=== PATIENT | female | born 1980 | race Caucasian/White ===

== ENCOUNTER 2022-11-18 14:11 | Outpatient (OUT) | payer BC, SELFPAY ==
[2022-11-18 14:46] LABS: Basophils Percent Auto 0.4 % (0.2-2.0); Eosinophils Absolute Auto 0.1 10^3/uL (0.0-0.7); Eosinophils Percent Auto 1.8 % (0.9-7.0); Hematocrit 40.9 % (36.0-48.0); Hemoglobin 13.6 g/dL (12.0-16.0); Immature Granulocytes Abs Auto 0.01 10^3/uL (0.00-0.03); Immature Granulocytes Pct Auto 0.1 % (0.0-0.5); Lymphocytes Absolute Auto 1.2 10^3/uL (1.2-3.8); Lymphocytes Percent Auto 17.5 % (20.5-60.0); Mean Corpuscular HGB Conc 33.3 g/dL (29.9-35.2); Mean Corpuscular Hemoglobin 31.3 pg (26.7-34.0); Mean Platelet Volume 9.3 fL (9.5-13.5); Monocytes Absolute Auto 0.5 10^3/uL (0.3-0.8); Monocytes Percent Auto 7.5 % (1.7-12.0); Neutrophils Absolute Auto 4.9 10^3/uL (1.4-6.5); Neutrophils Percent Auto 72.7 % (43.0-75.0); Platelet Count 301 10^3/uL (150-450); Red Blood Count 4.35 10^6/uL (4.20-5.40); Red Cell Distribution Width 12.1 % (11.0-15.0); White Blood Count 6.8 10^3/uL (4.0-11.0)
[2022-11-18 15:09] LABS: Alanine Aminotransferase 14 U/L (14-59); Albumin Globulin Ratio 1.3; Albumin Level 3.6 g/dL (3.4-5.0); Alkaline Phosphatase 59 U/L (46-116); Anion Gap 9.4; Aspartate Amino Transferase 9 U/L (15-37); Bilirubin Total 0.3 mg/dL (0.2-1.0); Calcium 8.4 mg/dL (8.5-10.1); Carbon Dioxide 29.3 mmol/L (21.0-32.0); Chloride 103 mmol/L (98-107); Estimated GFR (African America >60 (>=60); Estimated GFR (Non-African Ame >60 (>=60); Globulin 2.7 g/dL; Glucose 80 mg/dL (74-106); Potassium 3.7 mmol/L (3.5-5.1); Sodium 138 mmol/L (136-145); Total Protein 6.3 g/dL (6.4-8.2)
== END 2022-11-18 14:12 | disposition home or self-care (01) ==
LOC: LAB 14:14
PROVIDERS: PCP Internal Medicine; Visit Provider Physician Assistant
DX: G35 Multiple sclerosis (principal)
CPT/HCPCS: 36415; 80053; 85025

== ENCOUNTER 2023-04-30 08:25 | Outpatient (OUT) | payer BC, SELFPAY ==
--- NOTE | 2023-04-30 08:28 | MR_ITS ---
The [address] [address] Patient Name: RADHA BECKMAN MRN: [id number] date: 1980 Sex: F Assigned Patient Location: MRI Current Patient Location: MRI Accession/Order Number: [id number] Exam Date: 04/30/2023 09:00 Report Date: 04/30/2023 10:16 At the request of: ERNIE MALAVE Procedure: MR head/brain wo/w con EXAM: MR head/brain wo/w con CLINICAL INDICATION: Multiple Sclerosis G35 COMPARISON: None TECHNIQUE/PROTOCOL: Standard pre and postcontrast protocol brain MRI performed (Sagittal T1 with axial T1, T2, GRE, FLAIR, and diffusion-weighted imaging). CONTRAST: 14 mL of Dotarem. FINDINGS: No restricted diffusion, extra-axial fluid collection, hydrocephalus, midline shift, or other mass effect. Intracranial flow voids are maintained. Multiple nonenhancing supratentorial scattered hyperintense T2/FLAIR periventricular and subcortical foci. Several of these are oriented perpendicular to the lateral ventricles. No discrete associated hypointense T1 signal. No abnormal parenchymal, leptomeningeal, or dural enhancement. Abnormal descent of the bilateral cerebellar tonsils below the foramen magnum approximately 0.8 cm with very slight pointed morphology. Normal marrow signal. No soft tissue abnormalities. Trace scattered paranasal sinus mucosal thickening. Small left and trace right mastoid effusions. MR/MR head/brain wo/w con IMPRESSION: 1. Multiple nonenhancing supratentorial scattered hyperintense T2/FLAIR periventricular and subcortical foci. Several of these are oriented perpendicular to the lateral ventricles. These are in keeping with history of a demyelinating process such as multiple sclerosis. No prior MRI examinations are available for review. 2. No restricted diffusion or abnormal intracranial enhancement. 3. Abnormal descent of the bilateral cerebellar tonsils below the foramen magnum approximately 0.8 cm with very slight pointed morphology. These are most compatible with Chiari I malformation. Electronically authenticated by: SUNITA RUIZ Date: 04/30/2023 10:16
== END 2023-04-30 08:26 | disposition home or self-care (01) ==
LOC: MRI 08:25
PROVIDERS: PCP Internal Medicine; Visit Provider Nurse Practitioner Family
DX: G35 Multiple sclerosis (principal)
CPT/HCPCS: 70553; A9575

== ENCOUNTER 2023-05-15 14:44 | Outpatient (OUT) | payer BC, SELFPAY ==
--- NOTE | 2023-05-15 14:47 | MR_ITS ---
The [address] [address] Patient Name: RADHA BECKMAN MRN: [id number] date: 1980 Sex: F Assigned Patient Location: MRI Current Patient Location: MRI Accession/Order Number: [id number] Exam Date: 05/15/2023 14:55 Report Date: 05/15/2023 17:04 At the request of: KAVYA UREAÑ Procedure: MR cervical spine wo/w con MR cervical spine wo/w con, 05/15/2023 2:55 PM EDT INDICATION: Multiple Sclerosis G35 COMPARISON: There is no appropriate prior study for comparison. TECHNIQUE: Multiplanar, multisequential MRI images of cervical spine were obtained without contrast. FINDINGS: There is normal physiologic cervical lordosis. The vertebral heights are preserved. The cerebellar tonsils are below the foramen magnum for approximately 6 mm compatible with Chiari type I. There are T2 prolongation foci within the right hemicord of C3 and C5-C6 and C6-C7. At the level of C5-C6, there is mild right and moderate left neuroforaminal narrowing and no canal stenosis. At the level of C6-C7, there is moderate to severe left neuroforaminal narrowing and no canal stenosis. MR/MR cervical spine wo/w con IMPRESSION: Few asymmetrical T2 signal abnormality within the spinal cord suggesting of MS plaque in appropriate clinical setting. Chiari type I malformation. Electronically authenticated by: EJ BEAN Date: 05/15/2023 17:04
== END 2023-05-15 14:45 | disposition home or self-care (01) ==
LOC: MRI 14:44
PROVIDERS: PCP Internal Medicine; Visit Provider Psychiatry & Neurology Neurology
DX: G35 Multiple sclerosis (principal); G93.5 Compression of brain
CPT/HCPCS: 72156; A9575

== ENCOUNTER 2024-01-26 13:16 | Outpatient (OUT) | payer BC, SELFPAY ==
--- NOTE | 2024-01-26 14:00 | XR_ITS ---
The [address] [address] Patient Name: RADHA BECKMAN MRN: [id number] date: 1980 Sex: F Assigned Patient Location: [facility] Current Patient Location: Accession/Order Number: [id number] Exam Date: 01/26/2024 13:55 Report Date: 01/27/2024 08:52 At the request of: HOLLIS JAMESON Procedure: XR foot RT 2V PROCEDURE: XR foot RT 2V COMPARISON: None. HISTORY: Crushing Injury Of Fourth Toe FINDINGS: BONES:Subtle lucencies identified in the fourth middle and distal phalanx I suspect subacute fractures. SOFT TISSUES:Soft tissue swelling of the fourth finger EFFUSION:None visible. OTHER: Negative. XR/XR foot RT 2V IMPRESSION: Likely subacute fractures involving the fourth middle and distal phalanges Electronically authenticated by: REA PATEL Date: 01/27/2024 08:52
== END 2024-01-26 13:17 | disposition home or self-care (01) ==
PROVIDERS: PCP Internal Medicine; Visit Provider Internal Medicine
DX: S97.121A Crushing injury of right lesser toe(s), initial encounter (principal)
CPT/HCPCS: 73620

== ENCOUNTER 2024-01-26 13:21 | Outpatient (OUT) | payer BC, SELFPAY ==
[2024-01-26 13:42] LABS: Basophils Percent Auto 0.6 % (0.2-2.0); Eosinophils Absolute Auto 0.2 10^3/uL (0.0-0.7); Eosinophils Percent Auto 2.5 % (0.9-7.0); Hematocrit 43.5 % (36.0-48.0); Hemoglobin 14.9 g/dL (12.0-16.0); Immature Granulocytes Abs Auto 0.01 10^3/uL (0.00-0.03); Immature Granulocytes Pct Auto 0.1 % (0.0-0.5); Lymphocytes Absolute Auto 1.5 10^3/uL (1.2-3.8); Lymphocytes Percent Auto 20.9 % (20.5-60.0); Mean Corpuscular HGB Conc 34.3 g/dL (29.9-35.2); Mean Corpuscular Hemoglobin 32.3 pg (26.7-34.0); Mean Corpuscular Volume 94.2 fL (81.0-99.0); Mean Platelet Volume 8.8 fL (9.5-13.5); Monocytes Absolute Auto 0.5 10^3/uL (0.3-0.8); Monocytes Percent Auto 6.6 % (1.7-12.0); Neutrophils Percent Auto 69.3 % (43.0-75.0); Platelet Count 305 10^3/uL (150-450); Red Blood Count 4.62 10^6/uL (4.20-5.40); Red Cell Distribution Width 12.6 % (11.0-15.0); White Blood Count 7.2 10^3/uL (4.0-11.0)
[2024-01-26 13:59] LABS: Alanine Aminotransferase 20 U/L (14-59); Albumin Globulin Ratio 1.1; Albumin Level 3.1 g/dL (3.4-5.0); Alkaline Phosphatase 58 U/L (46-116); Aspartate Amino Transferase 8 U/L (15-37); BUN Creatinine Ratio 15.1; Bilirubin Total 0.4 mg/dL (0.2-1.0); Calcium 8.4 mg/dL (8.5-10.1); Carbon Dioxide 29.8 mmol/L (21.0-32.0); Chloride 105 mmol/L (98-107); Estimated GFR (African America >60 (>=60 mL/min/1.73m^2); Estimated GFR (Non-African Ame >60 (>=60 mL/min/1.73m^2); Globulin 2.9 g/dL; Glucose 129 mg/dL (74-106); Potassium 3.8 mmol/L (3.5-5.1); Sodium 141 mmol/L (136-145)
== END 2024-01-26 13:22 | disposition home or self-care (01) ==
LOC: LAB 13:22
PROVIDERS: PCP Internal Medicine; Visit Provider Nurse Practitioner Family
DX: S97.121A Crushing injury of right lesser toe(s), initial encounter (principal); G35 Multiple sclerosis
CPT/HCPCS: 36415; 73620; 80053; 85025

== ENCOUNTER 2024-05-27 07:35 | Outpatient (OUT) | payer BC, SELFPAY ==
--- OUTSIDE RECORDS SUMMARY | 2024-05-27 07:37 | XMS_ITS | CCD ---
Author Organization [facility] Care Team Providers Care Event Sales Representative Name Role Phone NARESH BARRIGA Unavailable Unavailable KARASIK, DR SAUER Consulting Unavailable KARASIK, DR SAUER Admitting Unavailable KARASIK, DR SAUER Attending Unavailable GISELL, DR SHAFER Primary Care Unavailable KARASIK, DR SAUER Consulting Unavailable GISELL, DR SHAFER Primary Care Unavailable BARRIGA, DR SHAFER Admitting Unavailable BARRIGA, DR SHAFER Attending Unavailable WEST, DR REA Payton Consulting Unavailable KARTHIK, BENSON Admitting Unavailable WEST, DR REA Payton Consulting Unavailable BARRIGA, DR SHAFER Primary Care Unavailable KARTHIK, BENSON Attending Unavailable KARTHIK, BENSON Consulting Unavailable BARRIGA, DR SHAFER Primary Care Unavailable DIAB, SUE Admitting Unavailable DIAB, SUE Attending Unavailable DIAB, SUE Consulting Unavailable KARASIK, DR SAUER Consulting Unavailable KARASIK, DR SAUER Attending Unavailable KARASIK, DR SAUER Admitting Unavailable BARRIGA, DR SHAFER Primary Care Unavailable FORD, JESSICA Consulting Unavailable KARASIK, DR SAUER Consulting Unavailable BARRIGA, DR SHAFER Primary Care Unavailable KARASIK, DR SAUER Admitting Unavailable KARASIK, DR SAUER Attending Unavailable JUNGERMANN VALDEMAR Consulting Unavailable GEMBUSNARESH Consulting Unavailable Naresh Barriga MD Primary Care Provider Naresh Barriga MD Unavailable Lupe Leal NP Unavailable Jaun Sparks DO Unavailable ERNIE MALAVE Attending Unavailable LUPE LEAL Attending Unavailable LUPE LEAL Referring Unavailable AL SLOAN Attending Unavailable LUPE LEAL Referring Unavailable NARESH BARRIGA Attending Unavailable Allergies Allergy Classification Reported Allergen(s) Allergy Type Date of Onset Reaction(s) Facility (1 source) gabapentin Drug Allergy 02-04-2014 [facility] Repository (7 sources) gabapentin Drug Allergy 06-09-2023 [facility] Medications Current Medications Medication Drug Class(es) Dates Sig (Normalized) Sig (Original) acetaminophen 325 mg / HYDROcodone bitartrate 5 mg oral tablet (3 sources) Opioid Agonist Start: 01-22-2024 End: 01-27-2024 take 1 tablet by mouth every six hours for pain HYDROcodone-aceta minophen (Claunch) 5-325 MG tablet Indications: Crushing injury of fourth toe, right, initial encounter Take 1 tablet by mouth every 6 (six) hours if needed for severe pain for up to 5 days 20 tablet 01/22/2024 01/27/2024 Active diroximel fumarate 231 mg delayed release oral capsule (7 sources) Start: 03-02-2024 take 2 capsules by mouth twice daily Vumerity 231 MG capsule delayed-release Indications: Multiple sclerosis (CMS/HCC) TAKE 2 CAPSULES BY MOUTH 2 TIMES A DAY 120 capsule 3 03/02/2024 Active Start: 09-19-2022 Vumerity 231 M G capsule delayed-release 09/19/2022 Active Problems Active Problems Problem Classification Problem Date Documented Date Episodic/Chronic Contraceptive and procreative management (6 sources) Encounter for sterilization; Translations: [Encounter for surveillance of implantable subdermal contraceptive] Onset: 12-27-2021 Episodic Crushing injury or internal injury (2 sources) Crush injury of toe of right foot; Translations: [Crushing injury of right lesser toe(s), initial encounter] 01-22-2024 Episodic Delirium, dementia, and amnestic and other cognitive disorders (4 sources) Cognitive disorder; Translations: [Unspecified mental disorder due to known physiological condition] 03-11-2024 Chronic E Codes: Struck by; against (1 source) Striking against or struck by other objects, initial encounter; Translations: [STRIKING AGNST/STRUCK OTH OBJ INIT] Onset: 03-12-2022 Episodic Immunizations and screening for infectious disease (2 sources) Encounter for immunization; Translations: [Encounter for screening for human papillomavirus (HPV)] Onset: 12-09-2021 Episodic Multiple sclerosis (15 sources) Multiple sclerosis; Translations: [Multiple sclerosis] Onset: 02-08-2022 Chronic Open wounds of extremities (5 sources) Laceration without foreign body, left lower leg, initial encounter; Translations: [Laceration without foreign body of left index finger without damage to nail, initial encounter] Onset: 08-25-2017 Episodic Other aftercare (2 sources) H/O: high risk medication; Translations: [Other penitentiary (current) drug therapy] 03-11-2024 Episodic Other diseases of bladder and urethra (7 sources) Neurogenic bladder; Translations: [Neuromuscular dysfunction of bladder, unspecified] Onset: 09-18-2023 09-18-2023 Chronic Other hereditary and degenerative nervous system conditions (7 sources) Restless legs; Translations: [Restless legs syndrome] Onset: 09-18-2023 09-18-2023 Chronic Other nervous system disorders (7 sources) Peripheral nerve disease ; Translations: [Polyneuropathy, unspecified] Onset: 09-18-2023 09-18-2023 Chronic Other nervous system disorders (7 sources) Carpal tunnel syndrome; Translations: [Carpal tunnel syndrome, unspecified upper limb] Onset: 09-18-2023 09-18-2023 Chronic Other nervous system disorders (7 sources) Lesion of ulnar nerve; Translations: [Lesion of ulnar nerve, unspecified upper limb] Onset: 09-18-2023 09-18-2023 Chronic Other nervous system disorders (9 sources) Chiari malformation type I; Translations: [Compression of brain] Onset: 09-18-2023 09-18-2023 Chronic Other nervous system disorders (9 sources) Paresthesia; Translations: [Paresthesia of skin] Onset: 09-18-2023 09-18-2023 Episodic Residual codes; unclassified (1 source) Family history of malignant neoplasm of other respiratory and intrathoracic organs; Translations: [FAM HX MAL NEOPLSM OTH RESP AND IT ORGN] Onset: 02-09-2022 Episodic Spondylosis; intervertebral disc disorders; other back problems (20 sources) Degeneration of lumbar intervertebral disc; Translations: [DDD (degenerative disc disease), lumbar] Onset: 09-18-2023 09-18-2023 Chronic Substance-related disorders (1 source) Nicotine dependence, cigarettes, uncomplicated; Translations: [NICOTINE DEPEND CIGARETTES UNCOMP] Onset: 01-10-2022 Chronic Unclassified (1 source) CONTACT W/AND (SUSP) EXPOS COVID-19; Translations: [CONTACT W/AND (SUSP) EXPOS COVID-19] Onset: 12-27-2021 Past or Other Problems Problem Classification Problem Date Documented Da te Episodic/Chronic Blindness and vision defects (7 sources) Visual disturbance; Translations: [Unspecified visual disturbance] Onset: 09-18-2023 09-18-2023 Episodic Complications of surgical procedures or medical care (7 sources) Complication of puncture procedure; Translations: [Other reaction to spinal and lumbar puncture] Onset: 09-18-2023 09-18-2023 Episodic Deficiency and other anemia (7 sources) Iron deficiency anemia; Translations: [Iron deficiency anemia, unspecified] Onset: 09-18-2023 09-18-2023 Episodic Malaise and fatigue (7 sources) Malaise; Translations: [Other malaise] Onset: 09-18-2023 09-18-2023 Episodic Other aftercare (7 sources) Patient encounter status; Translations: [Encounter for therapeutic drug level monitoring] Onset: 09-18-2023 09-18-2023 Episodic Other connective tissue disease (7 sources) Cramp in limb; Translations: [Cramp and spasm] Onset: 09-18-2023 09-18-2023 Episodic Other connective tissue disease (7 sources) Cramp; Translations: [Cramp and spasm] Onset: 09-18-2023 09-18-2023 Episodic Other nervous system disorders (7 sources) Skin sensation disturbance; Translations: [Unspecified disturbances of skin sensation] Onset: 09-18-2023 09-18-2023 Episodic Other screening for suspected conditions (not mental disorders or infectious disease) (20 sources) Encounter for screening mammogram for malignant neoplasm of breast; Translations: [Encounter for screening for malignant neoplasm of cervix] Onset: 12-06-2021 Episodic Spondylosis; intervertebral disc disorders; other back problems (20 sources) Neck pain; Translations: [Cervicalgia] Onset: 09-18-2023 09-18-2023 Episodic Results Test Name Value Interpretation Reference Range Facility ALL CBC WITH AUTO DIFFon BASOPHILS ABSOLUTE AUTO 0 [facility] Basophils/100 WBC (Bld) 0.6 % 0.2 - 2.0 % [facility] Eosinophils/100 WBC (Bld) 2.5 % 0.9 - 7.0 % [facility] Erythrocyte distribution width (RBC) [Ratio] 12.6 % 11.0 - 15.0 % [facility] Hematocrit (Bld) [Volume fraction] 43.5 % 36.0 - 48.0 % [facility] Hemoglobin (Bld) [Mass/Vol] 14.9 g/dL 12.0 - 16.0 g/dL [facility] IMMATURE GRANULOCYTES ABS AUTO 0.01 [facility] Immature granulocytes/100 WBC (Bld) 0.1 % 0.0 - 0.5 % [facility] Interpretation and review of laboratory results Abnormal [facility] LYMPHOCYTES ABSOLUTE AUTO 1.5 [facility] Lymphocytes/100 WBC (Bld) 20.9 % 20.5 - 60.0 % [facility] MCH (RBC) [Entitic mass] 32.3 pg 26.7 - 34.0 pg [facility] MCHC (RBC) [Mass/Vol] 34.3 g/dL 29.9 - 35.2 g/dL [facility] MCV (RBC) [Entitic vol] 94.2 fL 81.0 - 99.0 fL [facility] MONOCYTES ABSOLUTE AUTO 0.5 [facility] Monocytes/100 WBC (Bld) 6.6 % 1.7 - 12.0 % [facility] NEUTROPHILS ABSOLUTE AUTO 5 [facility] Neutrophils/100 WBC (Bld) 69.3 % 43.0 - 75.0 % [facility] Platelet mean volume (Bld) [Entitic vol] 8.8 fL Low 9.5 - 13.5 fL [facility] EO # 0.2 [facility] TB [address]T [address] [facility] e TB RBC 4.62 [facility] WBC 7.2 [facility] e US ABDOMEN LIMITEDon 024 US ABDOMEN LIMITED HISTORY: Umbilical pain FINDINGS: Prominent shadowing underlies the region of pain as indicated by the patient, midline umbilical/periumbilic al region. No peristalsing bowel. IMPRESSION: Umbilical/periumbilic al findings can be consistent with post-surgical mesh, possible disruption and possible herniation of air-filled bowel resulting in shadowing. As clinically indicated, CT imaging will be assistance for further characterization. TRANSCRIBED BY: ELECTRONICALLY SIGNED BY: Osvaldo Che MD Normal Not Available MRI BRAIN WO W CONon 023 MRI BRAIN WO W CON EXAMINATION: MRI BRAIN WO W CON HISTORY: Multiple sclerosis COMPARISON: 12/05/2020 TECHNIQUE: A variety of imaging planes and parameters were utilized for visualization of suspected pathology. Images were performed without and with Dotarem contrast. FINDINGS: CEREBRUM: Moderate stable superficial deep and periventricular white matter signal abnormality consistent with the provided diagnosis of multiple sclerosis. No restricted diffusion or areas of postcontrast enhancement to suggest active demyelination. No acute infarct mass or hemorrhage CEREBELLUM: No edema, hemorrhage, mass, acute infarction, or inappropriate atrophy. Cervical tonsils are up to 7 mm below the foramen magnum BRAINSTEM: No edema, hemorrhage, mass, acute infarction, or inappropriate atrophy. CSF SPACES: Ventricles, cisterns, and sulci are appropriate for age. No hydrocephalus, subarachnoid hemorrhage, or mass. SKULL: No mass or other significant visible lesion. SINUSES: Moderate left maxillary sinus disease with an air-fluid level. Moderate right and severe left ethmoid sinus disease. ORBITS: Limited views are unremarkable. OTHER: No abnormal meningeal or parenchymal enhancement. IMPRESSION: Moderate stable white matter disease consistent with known multiple sclerosis No restricted diffusion or postcontrast enhancement to suggest active demyelination Paranasal sinus disease Stable Chiari I malformation with the cerebellar tonsils up to 7 mm below the foramen magnum Electronically authenticated by: REA PATEL Date: 2022-02-11 11:40 Normal [facility] MG MAMM SCREEN 3D CRIS CADon 02-06-2022 MG MAMM SCREEN 3D CRIS CAD Patient: RADHA HUMMEL Exam Date: 02/06/2022 : 1980 Gender:F Ordering : DR CAMACHO MORROW . Admission #: [id number] Family : MRS. BENSON ANGELES JEANINE Order #: [id number] CLICK HERE TO VIEW EXAM RADIOLOGY REPORT PROCEDURE: MAMMOGRAM SCREENING 3D BILATERAL CAD COMPARISON: None. INDICATIONS: Screening mammography Calculator Name NCI Breast Cancer Risk Assessment Tool 5 Year Breast Cancer Risk 0.60% Lifetime Breast Cancer Risk 11.10% Personal Breast Cancer No Personal Ovarian Cancer No Treatments None Family Cancers Mother with throat cancer at age 65. LOCATION: [facility] BREAST COMPOSITION: Heterogeneously dense,which may obscure small masses. FINDINGS: DIAGNOSTIC CATEGORY 1--NEGATIVE. Scattered benign-appearing calcifications are present. RIGHT BREAST: No significant suspicious finding. LEFT BREAST: No significant suspicious finding. RECOMMENDATIONS: ROUTINE MAMMOGRAM AND CLINICAL EVALUATION IN 12 MONTHS. PLEASE NOTE: A NORMAL MAMMOGRAM DOES NOT EXCLUDE THE POSSIBILITY OF BREAST CANCER. A CLINICALLY SUSPICIOUS PALPABLE LUMP SHOULD BE BIOPSIED. Dictated by: Rea Patel MD on 02/07/2022 at 11:37 Approved by: Rea Patel MD on 02/07/2022 at 11:38 Normal [facility] URon 12-31-2021 , QUAL Negative Normal NEGATIVE [facility] Comment on above: Performed By: #### P REGU #### [facility] [address] [place] [address] Dr. Lavelle Penn Covid-19 PCR (CVDTB)on 12-11 SARS-CoV-2 (COVID-19) RNA MARIA E+probe Ql (Unsp spec) Not detected Normal NOT DETECTED [facility] Comment on above: Result Comment: This test is not yet approved or cleared by the [place] FDA. When there are no FDA-approved or cleared tests available, and other criteria are met, FDA can make tests available under an emergency access mechanism called an Emergency Use Authorization (EUA). The EUA for this test is supported by the Md Ophthalmologist of Health and Human Service's (HHS's) declaration that circumstances exist to justify the emergency use of in vitro diagnostics for the detection and/or diagnosis of the virus that causes COVID-19. This EUA will remain in effect (meaning this test can be used) for the duration of the COVID-19 declaration justifying emergency of IVDs, unless it is terminated or revoked by FDA (after which the test may no longer be used). When diagnostic testing is negative, the possibility of a false negative should be considered in the context of a patient's recent exposures and the presence of clinical signs and symptoms consistent with SARS-CoV-2. Performed By: #### C VDTBH #### [facility] [address] [place], [place] [id number] Dr. Lavelle Penn PAP ACOG PANEL 2: 30 to 65on 12-14-2021 . . Normal [facility] Comment on above: Result Comment: Perf ormed at: WB Performed By: #### [id number] #### [facility] [address] [place] [address] Dr. Lavelle Penn Age Gdln ACOG Testing 30-65 Normal [facility] Comment on above: Performed By: #### [id number] #### [facility] [address] [place] [address] Dr. Lavelle Penn DIAGNOSIS: Comment Normal [facility] Comment on above: Result Comment: NEGA TIVE FOR INTRAEPITHELIAL LESION OR MALIGNANCY. Performed at: WB Performed By: #### [id number] #### [facility] [address] [place] [address] Dr. Lavelle Penn HPV Aptima Negative Normal Negative [facility] Comment on above: Result Comment: This nucleic acid amplification test detects fourteen high-risk HPV types (16,18,31,33,35,39,45,51,52,56,58,59,66,68) without differentiation. Performed at: =G Performed By: #### [id number] #### [facility] [address] [place] [address] Dr. Lavelle Penn HPV Genotype Reflex Comment [facility] Comment on above: Result Comment: Crit eramilcar not met, HPV Genotype not performed. Performed at: WB Performed By: #### [id number] #### [facility] [address] [place] [address] Dr. Lavelle Penn Methodology: Comment [facility] Comment on above: Result Comment: This liquid based ThinPrep(R) pap test was screened with the use of an image guided system. Performed at: WB Performed By: #### [id number] #### [facility] [address] [place] [address] Dr. Lavelle Penn Note: Comment Normal [facility] Comment on above: Result Comment: The Pap smear is a screening test designed to aid in the detection of premalignant and malignant conditions of the uterine cervix. It is not a diagnostic procedure and should not be used as the sole means of detecting cervical cancer. Both false-positive and false-negative reports do occur. . Performed at: WB Performed By: #### [id number] #### [facility] [address] [place] [address] Dr. Lavelle Penn Performed by: Comment Normal [facility] Comment on above: Result Comment: Jason Hernandez, Leather Polisher (ASCP) Performed at: WB Performed By: #### [id number] #### [facility] [address], [place] [address] Dr. Lavelle Penn Specimen adequacy: Comment Normal [facility] Comment on above: Result Comment: Sati sfactory for evaluation. Endocervical and/or squamous metaplastic cells (endocervical component) are present. Performed at: WB Performed By: #### [id number] #### [facility] [address], [place] [address] Dr. Lavelle Penn ED Provider Noteon 8 HIM IP Note OR Virtual Recruiter Normal [facility] Vital Signs Date Time Vital Sign Value Performing Clinician Faci lity 03-11-2024 16:17-0500 Body mass index (BMI) [Ratio] 23.53 kg/m2 Ernie Malave EVP Work Phone: [facility] 03-11-2024 16:17-0500 Body weight 74.39 kg Ernie Malave EVP Work Phone: [facility] 03-11-2024 16:17-0500 Diastolic blood pressure 69 mm[Hg] Ernie Malave EVP Work Phone: [facility] 03-11-2024 16:17-0500 Heart rate 94 /min Ernie Malave EVP Work Phone: [facility] 03-11-2024 16:17-0500 Systolic blood pressure 133 mm[Hg] Ernie Malave EVP Work Phone: [facility] 01-22-2024 10:16-0500 Body height 177.8 cm Naresh Barriga MD Work Phone: [facility] 01-22-2024 10:16-0500 Body mass index (BMI) [Ratio] 23.39 kg/m2 Naresh Barriga MD Work Phone: [facility] 01-22-2024 10:16-0500 Body weight 73.94 kg Naresh Barriga MD Work Phone: [facility] 01-22-2024 10:16-0500 Diastolic blood pressure 66 mm[Hg] Naresh Barriga MD Work Phone: [facility] 01-22-2024 10:16-0500 Heart rate 86 /min Naresh Barriga MD Work Phone: [facility] 01-22-2024 10:16-0500 SaO2% (BldA) [Mass fraction] 99 % Naresh Barriga MD Work Phone: [facility] 01-22-2024 10:16-0500 Systolic blood pressure 104 mm[Hg] Naresh Barriga MD Work Phone: [facility] Encounters Encounter Date Encounter Type Care Provider Facility Start: 03-11-2024 End: 03-11-2024 Office outpatient visit 25 minutes Ernie Wojciech EVP Work Phone: [facility] Comment on above: Multiple sclerosis ( CMS/HCC) (Primary Dx); Long-term use of high-risk medication; Chiari malformation type I (CMS/HCC); Paresthesia; Degeneration of intervertebral disc of lumbar region, unspecified whether pain present; Cognitive dysfunction Start: 03-11-2024 End: 03-11-2024 ambulatory ERNIE MALAVE Not Available Start: 03-11-2024 End: 03-11-2024 Bamboo flowsheet Ernie Malave EVP Work Phone: [facility] Start: 03-11-2024 End: 03-11-2024 Bamboo flowsheet Ernie Malave EVP Work Phone: [facility] Start: 01-26-2024 End: 01-26-2024 [facility] Result Encounter Ernie Malave EVP Work Phone: [facility] Unsolicited Start: 01-26-2024 End: 01-26-2024 [facility] Result Encounter Ernie Malave EVP Work Phone: [facility] Unsolic[facility] Start: 01-22-2024 End: 01-22-2024 Bamboo flowsheet Naresh Barriga MD Work Phone: [facility] Start: 01-22-2024 End: 01-22-2024 Bamboo flowsheet Naresh Barriga MD Work Phone: [facility] Start: 01-22-2024 End: 01-22-2024 Office outpatient visit 15 minutes Naresh Barriga MD Work Phone: [facility] Comment on above: Crushing injury of f ourth toe, right, initial encounter (Primary Dx) Start: 01-22-2024 End: 01-22-2024 ambulatory NARESH BARRIGA Not Available Start: 06-09-2023 End: 06-09-2023 ambulatory AL SLOAN Not Available Start: 05-27-2023 End: 05-27-2023 ambulatory LUPE LEAL Not Available Start: 05-22-2023 End: 05-22-2023 ambulatory LUPE LEAL Not Available Start: 03-08-2022 End: 03-08-[address] NARESH BARRIGA Facility:[facility] Start: 02-08-2022 End: 02-09-2022 ambulatory BENSON ANGELES Facility:[facility] Start: 02-06-2022 End: 02-07-[address] CAMACHO MORROW Facility:[facility] Start: 12-31-2021 End: 12-31-[address] CAMACHO MORROW Facility:[facility] Start: 12-27-2021 Encounter for preprocedural laboratory examination DR CAMACHO MORROW [facility] Start: 12-24-2021 End: 12-25-[address] CAMACHO MORROW Facility:[facility] Start: 12-24-2021 End: 12-25-2021 Encounter for preprocedural laboratory examination DR CAMACHO MORROW Facility:[facility] Start: 12-06-2021 End: 12-06-[address] CAMACHO MORROW Facility:[facility] Start: 08-25-2017 End: 08-25-2017 Emergency department patient visit NARESH BARRIGA [facility] Procedures Date Procedure Procedure Detail Performing Clinician Start: 01-26-2024 ALL CBC WITH AUTO DIFF Ernie Malave NP Work Phone: Start: 02-06-2022 Mammography Naresh gandara MD Work Phone: Start: 08-25-2017 LACERATION REPAIR GREG BARRIGA Plan of Treatment Date Care Activity Detail Author Start: 05-04-2024 End: 05-04-2024 Patient encounter procedure 05/04/2024 3:40 PM EDT Office Visit [facility] [address] [place] [phone] Ernie Malave NP [address] [place], [place] [id number] [facility] Start: 03-11-2024 End: 03-11-2024 Patient encounter procedure 03/11/2024 4:20 PM EST Office Visit [facility] [address] [place] [phone] Ernie Malave NP [address] [place] [address] Arrived [facility] Comment on above: Arrived Start: 01-22-2024 End: 01-21-2025 XR Foot - right 2 Views XR foot 1 or 2 views right Imaging Routine Crushing injury of fourth toe, right, initial encounter Expected: 01/22/2024, Expires: 01/21/2025 [facility] Work Phone: Comment on above: Expected: 01/22/2024 , Expires: 01/21/2025 Start: 01-22-2024 End: 01-22-2024 Patient encounter procedure 01/22/2024 10:30 AM EST Office Visit [facility] [address] [facility] [address] [place] [phone] Naresh Barriga MD [address] [facility] [address] [place] [address] Arrived [facility] Comment on above: Arrived Start: 10-12-2023 Influenza vaccination Influenza Vacc ine (#1) [facility] Start: 02-06-2023 Screening for malign ant neoplasm of breast Mammogram [facility] Start: 05-11-2011 Screening for malign ant neoplasm of cervix [facility] Start: 2002 Screening for malign ant neoplasm of cervix Pap Smear [facility] Cobalamin (Vitamin B 12) [Mass/volume] in Serum or Plasma Vitamin B12 Lab Routine Long-term use of high-risk medication Ordered: 03/11/2024 [facility] Work Phone: Comment on above: Ordered: 03/11/2024 MR Brain WO and W contrast IV MR brain w and wo contrast routine Imaging Routine Multiple sclerosis (CMS/HCC) Cognitive dysfunction Ordered: 03/11/2024 [facility] Comment on above: Ordered: 03/11/2024 Thyrotropin [Units/volume] in Serum or Plasma TSH Lab Routine Long-term use of high-risk medication Ordered: 03/11/2024 [facility] Comment on above: Ordered: 03/11/2024 Immunizations Immunization Date Immunization Notes Care Provider Fa cili 03-08-2022 diphtheria, tetanus toxoids and pertussis vaccine Naresh Barriga MD Work Phone: [facility] 08-25-2017 tetanus toxoid, redu karen diphtheria toxoid, and acellular pertussis vaccine, adsorbed Naresh Barriga MD Work Phone: [facility] 12-02-2016 seasonal influenza, intradermal, preservative free Naresh Barriga MD Work Phone: [facility] 12-02-2016 influenza virus vacc ine, unspecified formulation Naresh Barriga MD Work Phone: [facility] Payers Date Payer Category Payer [facility] er [id number] 2023 Unknown [id number] 2017 Unknown [id number] 1981 Unknown [id number] 9.2.593 1981 Unknown [id number] [id number] 9.2.593 1981 Unknown [id number] 2.16.840.1.019162.3.57 9.2.593 1981 Unknown [id number] 2.16.840.1.140651.3.57 9.2.593 1981 Unknown [id number] 2.16.840.1.572088.3.57 9.2.593 1981 Unknown [id number] 2.16.840.1.596547.3.57 9.2.593 1981 Unknown [id number] 2.16.840.1.889634.3.57 9.2.1259 1981 Unknown [id number] 2.16.840.1.831684.3.57 9.2.1259 1981 Unknown [id number] 2.16.840.1.606290.3.57 9.2.1259 1981 Unknown [id number] [id number] 9.2.1259 1981 Unknown [id number] [id number] 9.2.1259 1959 Unknown [id number] 1959 Unknown [id number] Social History Date Type Detail Facility Start: 09-18-2023 Tobacco smoking stat [facility] Smokes tobacco daily [facility] History of tobacco use Cigarette Smoker [facility] Start: 09-18-2023 End: 03-11-2024 Cigarettes smoked current (pack per day) - Reported 0.5 [facility] Start: 09-18-2023 Tobacco use and exposure Smoke less tobacco non-user [facility] Start: 09-18-2023 End: 03-11-2024 Alcoholic beverage intake Lifetime non-drinker (finding) [facility] Start: 06-09-2023 End: 03-11-2024 Tobacco use panel [facility] Start: 06-09-2023 Alcohol Comment socially [facility] Start: 03-31-1982 Sex assigned at Not on file [facility] History of Present illness Narrative 03-11-2024 Ernie Malave, EVP - 03/11/2024 4:20 PM EST Note Date & Type Note Facility 03-11-2024 History of Presen t illness Narrative Images from the original note were not included. Chief Complaint Patient presents with Multiple Sclerosis Back Pain Numbness Subjective Radha Yates, 43 y.o., female Patient is here for follow up to MS and back pain, last seen 05/06/23. She continues on Vumerity for treatment. Admits labs since last seen. She denies any vision changes, eye pain, headaches or any dizziness. Patient states she still has numbness and tingling in BLE, denies changes with this. Denies significant low back pain. She states she still experiences fatigue and some word finding difficulty at times. Admits to brain fog. Denies any new onset weakness, imbalance or falls. Denies any new concerns. Review of Systems Constitutional: Negative for appetite change, fatigue and fever. Respiratory: Negative for cough, shortness of breath and wheezing. Cardiovascular: Negative for chest pain, palpitations and leg swelling. Gastrointestinal: Negative for abdominal pain, constipation, diarrhea and nausea. Musculoskeletal: Positive for back pain. Negative for arthralgias, gait problem and myalgias. Neurological: Positive for numbness. Negative for dizziness, tremors and headaches. Positive for numbness/tingling in the feet. Positive for word finding difficulty and brain fog Past Medical History: Diagnosis Date AB (asthmatic bronchitis) (CMS/HCC) Avulsion fracture Back pain Carpal tunnel syndrome Cervicalgia DDD (degenerative disc disease), lumbar Disturbance of skin sensation Endometriosis [place] Iron deficiency anemia Lesion of ulnar nerve Limb cramp Low ferritin Lumbar radiculopathy Malaise and fatigue MS (multiple sclerosis) (CMS/HCC) Multiple sclerosis, relapsing-remitting (CMS/HCC) Muscle cramp Neurogenic bladder Optic neuritis Peripheral neuropathy Psoriasis (CMS/HCC) Radiculopathy, lumbosacral region Reaction to spinal or lumbar puncture RLS (restless legs syndrome) Sciatica Unspecified visual disturbance Past Surgical History: Procedure Laterality Date ENDOMETRIAL ABLATION HERNIA REPAIR INNER EAR SURGERY eardrum surgery TONSILLECTOMY Family History Problem Relation Name Age of Onset Throat cancer Mother Lung cancer Father Prostate cancer Father Diabetes Other Stroke Other Hypotension Other Social History Tobacco Use Smoking status: Every Day Current packs/day: 0.50 Average packs/day: 0.5 packs/day for 20.0 years (10.0 ttl pk-yrs) Types: Cigarettes Smokeless tobacco: Never Substance Use Topics Alcohol use: Never Comment: socially Allergies: Gabapentin Vitals: 03/11/24 1617 BP: 133/69 Pulse: 94 Body mass index is 23.53 kg/m . weight: 164 lb Neurologic exam: Mental status: Well nourished, well developed and in no acute distress. Grossly oriented to person, place and time. Recent and remote memory are intact. Language is fluent without aphasia. Attention and concentration are normal. Fund of knowledge is appropriate for level of education. Cranial nerves: CN II: Visual acuity is normal. Visual hernandez full to confrontation. CN III, IV, : pupils equal round and reactive to light. Extraocular movements intact. No ptosis present. CN V: Facial sensation is normal. CN VII: Full and symmetric facial movement. CN VIII: Hearing is intact. CN IX and X: Palate elevates symmetrically. CN XI: Shoulder shrug is normal bilaterally. CN XII: Tongue is midline without atrophy or fasciculation. Motor: RUE Strength deltoid, , biceps , triceps , wrist extensors , wrist flexor , agronomy professor strength 5/5. LUE Strength deltoid , biceps , triceps , wrist extensors , wrist flexor , agronomy professor strength 5/5. RLE Strength illopsoas, quadriceps, tibialis anterior, and gastrocnemius strength 5/5. LLE Strength illopsoas, quadriceps, tibialis anterior, and gastrocnemius strength 5/5. Normal tone x4 extremities. Bulk is normal. Sensory: Sensation is intact to light touch throughout distal extremities. Reflexes: RUE biceps reflex 2+ brachioradialis reflex 2+ . LUE biceps reflex 2+ brachioradialis reflex 2+ . RLE knee reflex 2+ . LLE knee reflex 2+ . Borrego's sign negative. Coordination: Hrcrfe-gr-tpes testing is normal Rapid alternating movements are normal Gait: Normal Review and summary of old records: Labs on 01/26/2024: CMP and CBC overall unremarkable. MRI of the cervical spine with and without contrast at [facility] on 05/15/2023: Few asymmetrical T2 signal abnormality within the spinal cord suggesting of MS plaque in the appropriate clinical setting.Chiari type 1 malformation 6 mm descent. At C5-C6 there is mild right and moderate left neural foraminal narrowing and no canal stenosis. At C6- C7 there is moderate to severe left neural foraminal narrowing and no canal stenosis. MRI of the brain with and without contast on 04/30/23: Multiple nonenhancing supratentorial scattered hyperintense T2 flair periventricular and subcortical foci. Several of these are oriented perpendicular to the lateral ventricles. These are consistent with history of a demyelinating process such as MS. Abnormal descent of the bilateral cerebellar tonsils below the foramen magnum approximately 0.8 cm with very slight pointed morphology. Compatible with a Chiari I malformation LABs on 11/17/22: CBC and CMP overall unremakarkable. MRI brain w/wo contrast at [facility] on 02/08/22: Moderate stable white matter disease consistent with known multiple sclerosis. No restricted diffusion or postcontrast enhancement to suggest active demyelination. Paranasal sinus disease. Stable chiari malformation with the cerebellar tonsils up to 7mm below the foramen magnum. EMG of BLE at [facility] on 02/21/21: Normal MRI brain with and without contrast from December 05, 2020 shows minimal interval progression of supratentorial white matter disease consistent with known multiple sclerosis and no active demyelination suggested. Note was also made that she had a Chiari met meld formation with cerebellar tonsils 7.7 mm below the foramen magnum MRI lumbar spine without contrast from December 05, 2020 showed moderate discogenic changes with small posterior central disc herniation at L5-S1 not resulting in any significant central or foraminal stenosis MRI lumbar spine w/wo contrast from [facility] on 06/24/19: L5-S1 mild-moderate degenerative disc disease without significant central canal or neural foraminal narrowing. No visible cord lesion. No specific findings to account for patient's symptoms. MRI brain w/wo contrast at [facility] on 02/23/19: Numerous T2 hyperintensities within the deep white matter compatible with a demyelinating process. Interval development of 2 small lesions within the left frontal lobe since the 2017 study. Assessment/Plan Diagnoses and all orders for this visit: Multiple sclerosis (CMS/HCC) The patient has a history of RRMS on Vumerity. Previously failed tecfidera and gilenya. Minimal progression over past few years (based on imaging studies) and no new symptoms. MRI of the brain on 04/30/23 is consistent with the patient's history with no concerns for active demyelination. No symptoms to suggest relapse since last visit. Recent labs were overall unremarkable. PLAN: - Lab results were reviewed with the patient today - Continue Vumerity 462 mg PO BID - Repeat MRI of the brain for ongoing monitoring of MS progression. Chiari malformation type I (CMS/HCC) Chiari malformation type I, apparent on serial brain MRIs. Most recent brain MRI in 2023 shows 8 mm decent below the foramen magnum. However, no current symptoms concerning for outflow obstruction. MRI of the cervical spine on 05/15/23 again demonstrated decent but lesser degree of 6 mm. No evidence of syrinx. PLAN: - Continue to monitor clinically Cognitive dysfunction The patient presents today with concerns with cognitive dysfunction described as word finding difficulty and brain fog. No medications to suggest mediation induced symptoms and the patient denies any significant anxiety that would be contributory. Although imaging has been stable, I feel this is likely related to her MS. However, we are updating imaging as above and I will order labs to rule out alternative etiology. PLAN: - MRI of the brain as above - B12 and TSH - I have recommended further evaluation with neurospych testing but this is deferred per patient today - Recommended adequate hydration, sleep hygiene, brain stimulating activity and compensation techniques Paresthesia Ongoing paresthesias in feet bilaterally. Previously had episodes of numbness from her waist down which were treated as MS exacerbations, none recently though she has had these lingering foot symptoms. EMG in 2021 was normal. Symptoms likely the result of her MS. PLAN: - Could consider duloxetine for neuropathic pain benefit though this has been deferred by the patient - Lyrica was ineffective and she had side effects to gabapentin (double vision) Degeneration of intervertebral disc of lumbar region Mild lumbar spondylosis L5-S1 identified on previous lumbar MRI. Has had many epidural injections in the past and reportedly had relief from the numbness/tingling in her feet when Dr. Suggs them but did not have same success with AK. EMG of the BLE on 02/21/2021 was normal. Overall low back pain is not a significant complaint today. PLAN: - Could consider additional epidural in the future should symptoms worsen, per patient stable today - Continue to monitor clinically Follow up in 1 month following MRI or sooner if symptoms worsen, fail to improve, or should a new neurological concern arise. Pt has been fully educated on their diagnosis, treatment options, follow up plan, and return instructions documented in this encounter [facility] History of Present illness Narrative 01-22-2024 Naresh Barriga MD - 01/22/2024 10:30 AM EST Note Date & Type Note Facility 01-22-2024 History of Presen t illness Narrative Images from the original note were not included. Subjective Patient ID: Radha Yates is a 43 y.o. female who presents for Toe Injury. Pt dropped a dresser on toe on right foot 2 weeks ago Swelling and pain present--pain seems to be worsening Current Outpatient Medications on File Prior to Visit Medication Sig Dispense Refill Vumerity 231 MG capsule delayed-release No current facility-administered medications on file prior to visit. I have reviewed and reconciled the history and medication list with the patient today. Allergies Allergen Reactions Gabapentin Double vision Social History Tobacco Use Smoking status: Every Day Current packs/day: 0.50 Average packs/day: 0.5 packs/day for 20.0 years (10.0 ttl pk-yrs) Types: Cigarettes Smokeless tobacco: Never Substance Use Topics Alcohol use: Never Comment: socially Drug use: Never Family History Problem Relation Name Age of Onset Throat cancer Mother Lung cancer Father Prostate cancer Father Diabetes Other Stroke Other Hypotension Other Past Medical History: Diagnosis Date AB (asthmatic bronchitis) (CMS/HCC) Avulsion fracture Back pain Carpal tunnel syndrome Cervicalgia DDD (degenerative disc disease), lumbar Disturbance of skin sensation Endometriosis [place] Iron deficiency anemia Lesion of ulnar nerve Limb cramp Low ferritin Lumbar radiculopathy Malaise and fatigue MS (multiple sclerosis) (CMS/HCC) Multiple sclerosis, relapsing-remitting (CMS/HCC) Muscle cramp Neurogenic bladder Optic neuritis Peripheral neuropathy Psoriasis (CMS/HCC) Radiculopathy, lumbosacral region Reaction to spinal or lumbar puncture RLS (restless legs syndrome) Sciatica Unspecified visual disturbance Past Surgical History: Procedure Laterality Date ENDOMETRIAL ABLATION HERNIA REPAIR INNER EAR SURGERY eardrum surgery TONSILLECTOMY Visit Vitals BP 104/66 Pulse 86 Ht 5' 10 Wt 163 lb SpO2 99% BMI 23.39 kg/m Smoking Status Every Day BSA 1.91 m Review of Systems Objective Physical Exam Musculoskeletal: Feet: Comments: Right 4th digit edematous, no erythema, no skin break, tender Assessment/Plan Diagnoses and all orders for this visit: Crushing injury of fourth toe, right, initial encounter - XR foot 1 or 2 views right; Future - HYDROcodone-acetaminophen ([place]) 5-325 MG tablet; Take 1 tablet by mouth every 6 (six) hours if needed for severe pain for up to 5 days No follow-ups on file. documented in this encounter [facility] Evaluation note Note Date & Type Note Facility Evaluation note Diagnosis Crushing injury of fourth toe, right, initial encounter- Primary documented in this encounter [facility] Evaluation note Note Date & Type Note Facility Evaluation note Diagnosis Multiple sclerosis (CMS/HCC)- Primary Multiple sclerosis Long-term use of high-risk medication Chiari malformation type I (CMS/HCC) Compression of brain Paresthesia Disturbance of skin sensation Degeneration of intervertebral disc of lumbar region, unspecified whether pain present Cognitive dysfunction Unspecified persistent mental disorders due to conditions classified elsewhere documented in this encounter [facility] Summary Purpose Family History No Family History Records FoundNo Family History Records FoundNo Family History Records Found Advance Directives No Advanced Directives Records FoundNo Advanced Directives Records FoundNo Advanced Directives Records Found Additional Source Comments INFORMATION SOURCE (unrecogn ized section and content) DATE CREATED AUTHOR 08/27/2017 [facility] DATE CREATED AUTHOR AUTHOR'S ORGANIZ ATION 03/12/2022 [facility] DATE CREATED AUTHOR AUTHOR'S ORGANIZ ATION 03/13/2024 [facility] EPIC Care Teams (unrecognized sec tion and content) Event Sales Representative Relationship Specialty Start Date End Date Naresh Barriga MD [address] [facility] [address] [place] [address] PCP - General Internal Medicine 05/07/23 Lupe Leal NP [address] [place] [address] [place] [address] [facility] 07/12/23 Naresh Barriga MD [address] [place] [address] [place] [address] Internal Medicine 05/07/23 Event Sales Representative Relationship Specialty Start Date End Date Naresh Barriga MD [address] [place] [address] [place] [address] PCP - General Internal Medicine 05/07/23 Lupe Leal, EVP [address] [place] [address] [place] [address] PCP - [facility] 07/12/23 Naresh Barriga MD [address] [place] [address] [place] [address] Internal Medicine 05/07/23 Event Sales Representative Relationship Specialty Start Date End Date Naresh Barriga MD [address] [place] [address] [place] [address] PCP - General Internal Medicine 05/07/23 Lupe Leal, EVP [address] [place] [address] [place] [address] PCP - [facility] 07/12/23 Naresh Barriga MD [address] [place] [address] [place] [address] Internal Medicine 05/07/23 Event Sales Representative Relationship Specialty Start Date End Date Naresh Barriga MD [address] [place] [address] [place] [address] PCP - General Internal Medicine 05/07/23 Lupe Leal, EVP [address] [place] [address] [place] [address] PCP - [facility] 07/12/23 Naresh Barriga MD [address] [place] [address] [place] [address] Internal Medicine 05/07/23 Jaun Sparks DO [address] [place] [address] [id number] Referring Physician Neurology 03/11/24 Event Sales Representative Relationship Specialty Start Date End Date Naresh Barriga MD [address] [place] [address] [place] [address] PCP - General Internal Medicine 05/07/23 Lupe Leal NP [address] [place] [address] [place] [address] PCP - [facility] 07/12/23 Naresh Barriga MD [address] [place] [address] [place] [address] Internal Medicine 05/07/23 Jaun Sparks DO [address] [address] Referring Physician Neurology 03/11/24 Reason for Visit (unrecogniz ed section and content) Reason Comments Toe Injury Reason Comments Multiple Sclerosis Back Pain Numbness FOR RECORDS PERTAINING TO PATIENTS WHO ARE OR HAVE BEEN ENROLLED IN A CHEMICAL DEPENDENCY/SUBSTANCEABUSE PROGRAM, SOME INFORMATION MAY BE OMITTED. This clinical summary was aggregated from multiple sources. Caution should be exercised in using it in the provision of clinical care. This summary normalizes information from multiple sources, and as a consequence, information in this document may materially change the coding, format and clinical context of patient data. In addition, data may be omitted in some cases. CLINICAL DECISIONS SHOULD BE BASED ON THE PRIMARY CLINICAL RECORDS. [employer] [facility] provides no warranty or guarantee of the accuracy or completeness of information in this document.
--- NOTE | 2024-05-27 07:38 | MR_ITS ---
The [address] [address] Patient Name: RADHA BECKMAN MRN: [id number] date: 1980 Sex: F Assigned Patient Location: MRI Current Patient Location: MRI Accession/Order Number: [id number] Exam Date: 05/27/2024 11:28 Report Date: 05/27/2024 11:42 At the request of: ERNIE MALAVE NP Procedure: MR head/brain wo/w con MRI BRAIN WITHOUT AND WITH INTRAVENOUS CONTRAST CLINICAL DATA: Follow-up multiple sclerosis. COMPARISON: 04/30/2023 Multiecho, multiplanar imaging of the brain was performed before and after intravenous administration of 15 mL of Dotarem. The ventricles are normal in size and position. Foci of increased T2 and FLAIR signal are again seen within the periventricular and subcortical white matter, similar in distribution. The appearance is compatible with MS plaque. No associated enhancement is identified to suggest active demyelination. There are no new areas of abnormal signal intensity or enhancement within the supra or infratentorial brain. There is no restricted diffusion to suggest a recent ischemic event. No extra-axial collections or mass effect are seen. Mild cerebellar tonsillar herniation is again seen. Minor left maxillary mucus retention cysts are again noted. The remaining imaged paranasal sinuses and mastoid air cells are clear. MR/MR head/brain wo/w con IMPRESSION: SIMILAR WHITE MATTER LESIONS COMPATIBLE WITH HISTORY OF MULTIPLE SCLEROSIS. CONTINUED CEREBELLAR TONSILLAR HERNIATION SUGGESTING CHIARI I MALFORMATION. NO OTHER ACUTE FINDINGS. Impression dictated by: Lisette Wilson M.D.05/27/2024 11:42 AM Dictation Location: [place] [address] Electronically authenticated by: [id number] Y Date: 05/27/2024 11:42
== END 2024-05-27 07:36 | disposition home or self-care (01) ==
LOC: MRI 07:35
PROVIDERS: PCP Internal Medicine; Visit Provider Nurse Practitioner Family
DX: G35 Multiple sclerosis (principal); F09 Unspecified mental disorder due to known physiological condition
CPT/HCPCS: 70553; A9575